=== PATIENT | female | born 1955 | race Caucasian/White ===

== ENCOUNTER 2017-08-26 04:44 | Emergency (ER) | payer BC, OTHER ==
[2014-10-14 09:13] VITALS: BMI 24.4
[~2017-08-26 04:44] MED LIST: BAYER CHEWABLE81 MG PO
[2017-08-26 05:55] LABS: APPEARANCE CLEAR (CLEAR); BILIRUBIN NEGATIVE (NEGATIVE); COLOR YELLOW (YELLOW); GLUCOSE NEGATIVE (NEGATIVE); KETONE SMALL mg/dL (NEGATIVE); NITRITE NEGATIVE (NEGATIVE); PROTEIN NEGATIVE (NEGATIVE); UROBILINOGEN NORMAL (NORMAL)
[2017-08-26 06:21] LABS: BASOPHILS 0.1 % (0-2); EOSINOPHILS 0.4 % (0-7); HEMOGLOBIN 11.9 g/dL (12-16); IMMATURE GRANULOCYTES 0.1 % (0-5); LYMPHOCYTES 8.8 % (15-50); MCH 28.5 pg (26.0-34.0); MCHC 32.2 g/dL (31.0-37.0); MCV 88.7 fL (80.0-100.0); MEAN PLATELET VOLUME 10.6 fL (7.4-10.4); MONOCYTES 7.6 % (2-11); PLATELET COUNT 222 10x3/uL (130-400); RBC 4.17 10x6/uL (4.00-5.40); RDW 13.5 % (11.5-14.5); WBC 7.4 10x3/uL (4.8-10.8)
[2017-08-26 06:43] LABS: ALBUMIN 3.7 g/dL (3.4-5.0); ALKALINE PHOSPHATASE 77 U/L (46-116); ALT (SGPT) 12 U/L (10-68); AMYLASE - SERUM 48 U/L (25-115); BILIRUBIN - TOTAL 0.44 mg/dL (0.2-1.3); CALC OSMOLALITY 284 mosm/kg (275-300); CALCIUM 8.3 mg/dL (8.5-10.1); CARBON DIOXIDE 24.7 mmol/L (21.0-32.0); CHLORIDE - SERUM 108 mmol/L (98-107); CREATININE - SERUM 0.8 mg/dL (0.6-1.3); GLUCOSE 110 mg/dL (74-106); LIPASE 143 U/L (73-393); POTASSIUM - SERUM 4.1 mmol/L (3.5-5.1); PROTEIN - SERUM 6.2 g/dL (6.4-8.2); SODIUM 142 mmol/L (136-145); UREA NITROGEN 16 mg/dL (7-18); eGFR NON AFRICAN AMERICAN 78 mL/min (90-120)
[2017-08-26 08:31] LABS: CKMB 0.9 U/L (0.0-3.6); CREATINE KINASE 68 UL (21-215)
[2017-08-26 08:36] LABS: TROPONIN-I < 0.017 ng/mL (0.000-0.060)
== END 2017-08-26 09:58 | disposition home or self-care (01) ==
LOC: D.ER 04:44
PROVIDERS: Family Medicine
DX: R19.7 Diarrhea, unspecified (principal); R10.9 Unspecified abdominal pain; K52.9 Noninfective gastroenteritis and colitis, unspecified

== ENCOUNTER 2018-04-18 13:19 | Observation (INO) | payer BC, OTHER ==
[~2018-04-18] VITALS: Ht 152.4 cm; Wt 51.6 kg
--- NOTE | ~2018-04-18 | EC ---
PATIENT:ALEXA ADAN DATE OF SERVICE: 04/18/18 SEX: F MEDICAL RECORD: [id number] DATE OF : [birth year] LOCATION:D.M2 D.211 AGE OF PATIENT: 62 ADMISSION DATE: 04/18/18 REFERRING PHYSICIAN: INTERPRETING PHYSICIAN: ANGELI NAVA MD ECHOCARDIOGRAM REPORT ECHO CHARGES 4 ECHO COMPLETE Date: 04/19/18 CLINICAL DIAGNOSIS: SYNCOPE/TIA VS. CVA ECHOCARDIOGRAPHIC MEASUREMENTS (adult normal given) AC root (d.<3.7cm) 3.0 cm LV Septum d (<1.2 cm> 1.1 cm Valve Excursion 2.0 cm LV Septum (systole) 1.6 cm Left Atria (s.<4.0cm> 2.8 cm LVPW d(<1.2cm) 1.1 cm RV (d.<2.3cm) 2.4 cm LVPW (sytole) 1.6 cm LV diastole(<5.6CM) 4.3 cm MV E-F(>70mm/sec) cm LV systole 2.1 cm LVOT Diameter 1.6 cm MV exc.(>10mm) cm Est.ejection fraction (50-75%) % DOPPLER: LVIT cm/sec A 58.0 cm/sec E 76.0 cm/sec LA cm/sec RVSP 31.2 mmHg LVOT 103 cm/sec AOP1/2T 1043.m/s Asc. Ao 150 cm/sec RVOT 73.0 cm/sec RA cm/sec PA 83.0 cm/sec AV Gradient Peak 9.0 mmHg AV Mean 4.0 mmHg AV Area 1.3 cm MV Gradient Peak 4.1 mmHg MV Mean 1.5 mmHg MV Area cm COMMENTS: Armature Connector: 1 MANOJ SOBIA Tool Drawing Checker: 3 Dr. [employer] TAPE# PACS Pericardial Effusion N DATE OF SERVICE: Adequate 2D echo, color flow, spectral Doppler, and M-mode No LVH. LV internal dimension is normal. Wall motion is normal. EF 55%. Aortic valve is tricuspid. There is no evidence of stenosis on Doppler interrogation. Left atrium is normal. Mitral valve shows no prolapse. Trace MR. Right-sided chamber size grossly normal. Trace TR. TRANSINT:[id number] Voice Confirmation ID: [id number] DOCUMENT ID: [id number] ECHOCARDIOGRAM REPORT [id number] ALEXA ADAN GREGORY A MD at 1023 CC: [id number] DICTATION DATE: 04/19/18 164 APPLICATION SUPPORT MANAGER: 04/20/18 0044 DIS IN 04/19/18 [facility] [address] [place] [address]
--- NOTE | ~2018-04-18 | CN ---
PATIENT NAME:ALEXA ADAN MEDICAL RECORD: [id number] : 59 LOCATION:[facility] D.2116 ADMIT DATE: 04/18/18 ACCOUNT: [id number] CONSULTING PHYSICIAN: ANGELI NAVA MD REFERRING PHYSICIAN: CLARITA STEIN MD DATE OF CONSULTATION: 04/19/2018 HISTORY OF PRESENT ILLNESS: A 62-year-old female with no known cardiac history, really has no significant past medical history. Admitted with an episode of near syncope, TIA-type symptomatology. [place] like she just basically became limp, was markedly dizzy, nauseated. No real prodrome, although she was treated for shingles up until Saturday of this week. No chest pain. No palpitations. We are asked to see her concerning her cardiovascular status. PAST MEDICAL HISTORY: Otherwise recent shingles, otherwise unremarkable. ALLERGIES: None known. MEDICATIONS: None chronically. SOCIAL HISTORY: Nonsmoker. Nondrinker. Easily takes care of all of her ADLs. Did have an exercise program up until about 6 months ago. REVIEW OF SYSTEMS: The patient reports easy bruising but reports no swollen glands. The patient reports no fever, no night sweats, no significant weight gain, no significant weight loss. No significant exercise tolerance. The patient reports no dry eyes, no irritation, no vision change. Patient reports no difficulty hearing and no ear pain. Patient reports no frequent nose bleeds or nose and sinus problems. Patient reports on arm pain on exertion. No shortness of breath while lying down. No history of heart murmur. Patient reports no cough, no wheezing or coughing up blood. Patient reports no abdominal pain, no vomiting. Normal appetite. No diarrhea and not vomiting blood. No nausea and no constipation. Patient reports no incontinence. No difficulty urinating. No hematuria. No increased frequency. Patient reports no muscle aches. No weakness, no arthralgias, no back pain. No swelling of the extremities. Patient reports no abnormal mole, no jaundice, no rashes. Reports no loss of consciousness. No weakness and no numbness. No seizures, dizziness, or headaches. The patient reports no depression, no sleep disturbance, feeling safe in a relationship and no alcohol abuse. Patient reports on fatigue. Reports no runny nose or sinus pressure. No itching, no hives, and no frequent sneezing. PHYSICAL EXAMINATION: GENERAL: Pleasant female, in no acute distress, appears stated age. VITAL SIGNS: Blood pressure 118/68, pulse 65 and regular. HEENT: Normocephalic, atraumatic. NECK: No JVD or bruit. HEART: Regular. LUNG HUDSON: Good air excursion. ABDOMEN: Soft, nontender. EXTREMITIES: Pulses 2+. No edema. NEUROLOGIC: Grossly intact. DIAGNOSTIC DATA: ECG shows normal sinus rhythm, normal QRS duration, normal MA interval, QT interval is normal. CONSULT REPORT [id number] ALEXA ADAN IMPRESSION: Near syncope, somewhat of a wide differential. Rhythm currently sinus with no IVCD, MA change, etc. We will check echocardiographic study, carotid Dopplers as you are doing. Further recommendations based on the above. TRANSINT:[id number] Voice Confirmation ID: [id number] DOCUMENT ID: [id number] ANGELI NAVA MD at 1023 CC: [id number] DICTATION DATE: 04/19/18 1013 ELECTRONIC TECHNOLOGIST: 04/19/18 1114 DIS IN 04/19/18 [facility] [address] [place] [address]
[2018-04-18 14:18] LABS: BASOPHILS 0.2 % (0-2); EOSINOPHILS 0.1 % (0-7); HEMATOCRIT 38.2 % (36.0-48.0); HEMOGLOBIN 12.8 g/dL (12-16); IMMATURE GRANULOCYTES 0.2 % (0-5); LYMPHOCYTES 11.8 % (15-50); MCH 29.6 pg (26.0-34.0); MCHC 33.5 g/dL (31.0-37.0); MCV 88.4 fL (80.0-100.0); MEAN PLATELET VOLUME 10.7 fL (7.4-10.4); MONOCYTES 6.6 % (2-11); NEUTROPHILS 81.1 % (40-80); PLATELET COUNT 243 10x3/uL (130-400); RBC 4.32 10x6/uL (4.00-5.40); WBC 9.6 10x3/uL (4.8-10.8)
[2018-04-18 14:46] LABS: ALBUMIN 3.7 g/dL (3.4-5.0); ALKALINE PHOSPHATASE 72 U/L (46-116); ALT (SGPT) 18 U/L (10-68); BILIRUBIN - TOTAL 0.35 mg/dL (0.2-1.3); CALC OSMOLALITY 282 mosm/kg (275-300); CALCIUM 9.2 mg/dL (8.5-10.1); CARBON DIOXIDE 26.6 mmol/L (21.0-32.0); CHLORIDE - SERUM 106 mmol/L (98-107); CREATININE - SERUM 0.7 mg/dL (0.6-1.3); GLUCOSE 109 mg/dL (74-106); POTASSIUM - SERUM 3.9 mmol/L (3.5-5.1); PROTEIN - SERUM 6.9 g/dL (6.4-8.2); SODIUM 142 mmol/L (136-145); UREA NITROGEN 11 mg/dL (7-18); eGFR NON AFRICAN AMERICAN 90 mL/min (90-120)
[2018-04-18 15:00] VITALS: BP 144/68
[2018-04-18 15:56] LABS: APPEARANCE CLEAR (CLEAR); BILIRUBIN NEGATIVE (NEGATIVE); COLOR YELLOW (YELLOW); GLUCOSE NEGATIVE (NEGATIVE); KETONE LARGE mg/dL (NEGATIVE); NITRITE NEGATIVE (NEGATIVE); PROTEIN NEGATIVE (NEGATIVE); SPECIFIC GRAVITY 1.025 (1.005-1.020); UROBILINOGEN NORMAL (NORMAL)
[2018-04-18 16:00] VITALS: BP 147/66
[2018-04-18 17:00] VITALS: BP 156/71
[2018-04-18 17:31] LABS: CKMB 0.4 U/L (0.0-3.6); CREATINE KINASE 36 UL (21-215)
[2018-04-18 17:35] LABS: TROPONIN-I < 0.017 ng/mL (0.000-0.060)
[2018-04-18 20:00] VITALS: BP 142/71
[2018-04-18 23:04] LABS: CKMB 0.4 U/L (0.0-3.6); CREATINE KINASE 35 UL (21-215); TROPONIN-I < 0.017 ng/mL (0.000-0.060)
[2018-04-18 23:42] VITALS: BP 142/71; Ht 152.4 cm; Wt 51.6 kg
[2018-04-19] VITALS: BP 109/62
[2018-04-19 05:21] LABS: BASOPHILS 0.2 % (0-2); EOSINOPHILS 0.5 % (0-7); HEMATOCRIT 38.4 % (36.0-48.0); HEMOGLOBIN 12.7 g/dL (12-16); IMMATURE GRANULOCYTES 0.2 % (0-5); LYMPHOCYTES 24.3 % (15-50); MCH 29.3 pg (26.0-34.0); MCHC 33.1 g/dL (31.0-37.0); MCV 88.5 fL (80.0-100.0); MEAN PLATELET VOLUME 11.1 fL (7.4-10.4); MONOCYTES 9.6 % (2-11); NEUTROPHILS 65.2 % (40-80); PLATELET COUNT 238 10x3/uL (130-400); RBC 4.34 10x6/uL (4.00-5.40); RDW 14.1 % (11.5-14.5); WBC 8.5 10x3/uL (4.8-10.8)
[2018-04-19 05:53] VITALS: BP 111/57
[2018-04-19 05:53] LABS: ALBUMIN 3.4 g/dL (3.4-5.0); ALKALINE PHOSPHATASE 65 U/L (46-116); CALC OSMOLALITY 280 mosm/kg (275-300); CALCIUM 8.9 mg/dL (8.5-10.1); CARBON DIOXIDE 22.9 mmol/L (21.0-32.0); CHLORIDE - SERUM 107 mmol/L (98-107); CHOL - HDL RATIO 3.4 ratio (2.3-4.1); CHOLESTEROL, TOTAL 213 mg/dL (0-200); CKMB 0.5 U/L (0.0-3.6); CREATINE KINASE 30 UL (21-215); CREATININE - SERUM 0.7 mg/dL (0.6-1.3); GLUCOSE 81 mg/dL (74-106); HDL CHOLESTEROL 63 mg/dL (32-96); LDL CHOLESTEROL 132 mg/dL (0-100); LDL-HDL RATIO 2.1 ratio (1.5-3.5); POTASSIUM - SERUM 4.1 mmol/L (3.5-5.1); PROTEIN - SERUM 6.5 g/dL (6.4-8.2); SODIUM 142 mmol/L (136-145); TRIGLYCERIDE 92 mg/dL (30-200); UREA NITROGEN 10 mg/dL (7-18); eGFR NON AFRICAN AMERICAN 90 mL/min (90-120)
[2018-04-19 05:54] LABS: ALT (SGPT) 13 U/L (10-68); TROPONIN-I < 0.017 ng/mL (0.000-0.060)
[2018-04-19 07:59] VITALS: BP 111/68
[2018-04-19 10:46] VITALS: BP 113/61
[2018-04-19] MEDS ORDERED: ASPIRIN81 MG PO (13:38)
[2018-04-19] MEDS ORDERED: ZETIA10 MG PO (13:38)
== END 2018-04-19 16:16 | disposition home or self-care (01) ==
LOC: D.ER 13:19 → D.M2 18:06 → D.EDHOLD 18:06 → OBSVTIME 18:06 → D.M2 18:57
PROVIDERS: Emergency Medicine; Family Medicine
DX: G45.9 Transient cerebral ischemic attack, unspecified (principal); R00.1 Bradycardia, unspecified; E78.5 Hyperlipidemia, unspecified; K21.9 Gastro-esophageal reflux disease without esophagitis

== ENCOUNTER 2018-05-06 13:42 | Emergency (ER) | payer BC, OTHER ==
[~2018-05-06] VITALS: Ht 152.4 cm; Wt 47.7 kg
[~2018-05-06 13:42] MED LIST changes: +ASPIRIN81 MG PO; +ZETIA10 MG PO
[2018-05-06 13:53] VITALS: Ht 152.4 cm; Wt 47.7 kg
[2018-05-06 14:17] LABS: BASOPHILS 0.3 % (0-2); EOSINOPHILS 0.8 % (0-7); HEMATOCRIT 40.7 % (36.0-48.0); HEMOGLOBIN 13.7 g/dL (12-16); LYMPHOCYTES 27.3 % (15-50); MCH 29.9 pg (26.0-34.0); MCHC 33.7 g/dL (31.0-37.0); MCV 88.9 fL (80.0-100.0); MEAN PLATELET VOLUME 10.9 fL (7.4-10.4); NEUTROPHILS 63.6 % (40-80); PLATELET COUNT 254 10x3/uL (130-400); RBC 4.58 10x6/uL (4.00-5.40); WBC 6.3 10x3/uL (4.8-10.8)
[2018-05-06 14:26] LABS: APTT 26.5 SECONDS (22.8-39.4); INR 0.97 (0.85-1.17); PROTIME 12.5 SECONDS (11.6-15.0)
[2018-05-06 14:32] LABS: ALBUMIN 4.2 g/dL (3.4-5.0); ALKALINE PHOSPHATASE 72 U/L (46-116); ALT (SGPT) 17 U/L (10-68); BILIRUBIN - TOTAL 0.35 mg/dL (0.2-1.3); CALC OSMOLALITY 286 mosm/kg (275-300); CALCIUM 9.4 mg/dL (8.5-10.1); CARBON DIOXIDE 28.4 mmol/L (21.0-32.0); CHLORIDE - SERUM 107 mmol/L (98-107); CREATININE - SERUM 0.7 mg/dL (0.6-1.3); GLUCOSE 89 mg/dL (74-106); POTASSIUM - SERUM 3.8 mmol/L (3.5-5.1); PROTEIN - SERUM 7.2 g/dL (6.4-8.2); SODIUM 145 mmol/L (136-145); UREA NITROGEN 10 mg/dL (7-18); eGFR NON AFRICAN AMERICAN 90 mL/min (90-120)
[2018-05-06 14:43] LABS: CKMB 0.7 U/L (0.0-3.6); CREATINE KINASE 43 UL (21-215); TROPONIN-I < 0.017 ng/mL (0.000-0.060)
[2018-05-06] MEDS ORDERED: AUGMENTIN 875-11 TAB PO (15:50)
[2018-05-06] MEDS ORDERED: ANTIVERT12.5 MG PO (15:50)
[2018-05-06 19:18] VITALS: BP 123/72
== END 2018-05-06 17:20 | disposition home or self-care (01) ==
LOC: D.ER 13:42
PROVIDERS: Emergency Medicine
DX: R07.9 Chest pain, unspecified (principal); R42 Dizziness and giddiness; M79.602 Pain in left arm; Z86.73 Personal history of transient ischemic attack (TIA), and cerebral infarction without residual deficits; R00.1 Bradycardia, unspecified

== ENCOUNTER 2018-12-03 07:13 | Day surgery (SDC) | payer BC ==
[~2018-12-03] VITALS: Ht 152.4 cm; Wt 52.2 kg
[~2018-12-03 07:13] MED LIST changes: +ANTIVERT12.5 MG PO; +AUGMENTIN 875-11 TAB PO; +MIRALAX17 GM PO; +NIFEDIPINE/LIDOCAINE TOPICAL
[2018-12-03 08:10] LABS: HEMATOCRIT 40.1 % (36.0-48.0); HEMOGLOBIN 13.4 g/dL (12-16); MCH 29.3 pg (26.0-34.0); MCHC 33.4 g/dL (31.0-37.0); MCV 87.6 fL (80.0-100.0); MEAN PLATELET VOLUME 10.7 fL (7.4-10.4); RBC 4.58 10x6/uL (4.00-5.40); RDW 13.2 % (11.5-14.5); WBC 5.1 10x3/uL (4.8-10.8)
[2018-12-03 08:40] VITALS: BP 118/67; Ht 152.4 cm; Wt 52.2 kg
[2018-12-03] MEDS ORDERED: HYDROCODON-ACE1 EAC7 PO (11:13)
[2018-12-03] MEDS ORDERED: CYCLOBENZAPRINE10 MG PO (11:14)
--- NOTE | 2018-12-03 13:47 | NUR ---
DC INSTRUCTIONS GIVEN TO PT/FAMILY. STATE UNDERSTANDING. DC'D IV CATH FULLY INTACT.
== END 2018-12-03 13:50 | disposition home or self-care (01) ==
LOC: D.OPS 07:13 → D.PAN 08:15 → D.OPS 08:45
PROVIDERS: Anesthesiology; ATTEND Surgery
DX: K60.2 Anal fissure, unspecified (principal); K63.5 Polyp of colon; Z01.812 Encounter for preprocedural laboratory examination